=== PATIENT | male | born 1975 | race Two or more races ===

== ENCOUNTER 2022-10-14 20:53 | Emergency (ER) | payer OTHER ==
[~2022-10-14] VITALS: Ht 177.8 cm; Wt 100.0 kg
[2022-10-14] MEDS ORDERED: HYDROmorphone HCL 2 MG/ML VL/or syr IM ONE (22:30)
[2022-10-15] MEDS ORDERED: cefTRIAXone SOD 1,000 MG VL IM ONE (00:15)
[2022-10-15 02:06] VITALS: PULSE 56; RESP 29; O2SAT 94
[2022-10-15 02:20] VITALS: BP 120/74; PULSE 60; RESP 20; TEMP 98; O2SAT 94
== END 2022-10-15 02:28 | disposition hospice, inpatient (51) ==
LOC: EDBD 20:53 → EDUNIT# 20:53 → ER 20:53
DX: S68.122A Partial traumatic metacarpophalangeal amputation of right middle finger, initial encounter (principal); S67.192A Crushing injury of right middle finger, initial encounter; Z88.1 Allergy status to other antibiotic agents; W23.0XXA Caught, crushed, jammed, or pinched between moving objects, initial encounter; Y93.89 Activity, other specified; Y92.89 Other specified places as the place of occurrence of the external cause; Y99.8 Other external cause status
CPT/HCPCS: 73130; 96372; 99285; J0696